=== PATIENT | male | born 1960 | race Caucasian/White ===

== ENCOUNTER 2023-11-15 21:14 | Emergency (ER) | payer OTHER ==
[~2023-11-15] VITALS: Ht 172.7 cm; Wt 90.0 kg
[2023-11-15 21:21] VITALS: O2SAT 98
[2023-11-15] MEDS: ACETAMINOPHEN 325MG TABLET PO ONE (22:19)
[2023-11-15 23:11] VITALS: BP 108/61; PULSE 65; RESP 14; TEMP 36.44736; O2SAT 97
[2023-11-15] MEDS ORDERED: ACET-2708 MT (23:40)
== END 2023-11-16 00:07 | disposition home or self-care (01) ==
LOC: ER 21:14
DX: M79.641 Pain in right hand (principal); Z86.73 Personal history of transient ischemic attack (TIA), and cerebral infarction without residual deficits
CPT/HCPCS: 29125; 73130; 99284